=== PATIENT | male | born 1990 | race Caucasian/White ===

== ENCOUNTER 2019-12-16 19:36 | Emergency (ER) | payer MEDICAID ==
[~2019-12-16] VITALS: Ht 177.8 cm; Wt 90.0 kg
[2019-12-16 19:38] VITALS: BP 138/73
== END 2019-12-16 21:19 | disposition home or self-care (01) ==
LOC: ER 19:37
DX: S40.022A Contusion of left upper arm, initial encounter (principal); X58.XXXA Exposure to other specified factors, initial encounter; Y93.89 Activity, other specified; Y92.89 Other specified places as the place of occurrence of the external cause; Y99.8 Other external cause status
CPT/HCPCS: 99282

== ENCOUNTER 2021-03-17 21:25 | Emergency (ER) | payer MEDICAID ==
[~2021-03-17] VITALS: Ht 177.8 cm; Wt 104.5 kg
[2021-03-17] MEDS ORDERED: AMOX-422 PO (22:13)
[2021-03-17 23:05] VITALS: BP 146/84
== END 2021-03-17 23:08 | disposition home or self-care (01) ==
LOC: ER 21:26
DX: H66.92 Otitis media, unspecified, left ear (principal)
CPT/HCPCS: 99283

== ENCOUNTER 2021-08-03 23:07 | Emergency (ER) | payer MEDICAID ==
[~2021-08-03] VITALS: Ht 177.8 cm; Wt 102.3 kg
[2021-08-04 01:22] VITALS: BP 115/72
== END 2021-08-04 01:27 | disposition home or self-care (01) ==
LOC: ER 23:08
DX: M79.645 Pain in left finger(s) (principal); W21.07XA Struck by softball, initial encounter; Y93.89 Activity, other specified; Y92.89 Other specified places as the place of occurrence of the external cause; Y99.8 Other external cause status
CPT/HCPCS: 73140; 99283

== ENCOUNTER 2023-06-01 21:17 | Emergency (ER) | payer MEDICAID ==
[~2023-06-01] VITALS: Ht 177.8 cm; Wt 107.4 kg
[2023-06-01 22:33] LABS: BASOPHILS % (AUTO) 0.4 % (0-1); EOSINOPHILS # (AUTO) 0.2 X10'3 (0-0.9); EOSINOPHILS % (AUTO) 2.5 % (0-6); HEMATOCRIT 41.3 % (42.0-52.0); LYMPHOCYTES # (AUTO) 2.5 X10'3 (1.1-4.8); MEAN CORPUSCULAR HEMOGLOBIN 29.3 PG (27.0-31.0); MEAN CORPUSCULAR HGB CONC 33.9 g/dL (33.0-36.5); MEAN CORPUSCULAR VOLUME 86.6 FL (78-98); MEAN PLATELET VOLUME 8.4 FL (7.4-10.4); MONOCYTES # (AUTO) 0.7 X10'3 (0-0.9); MONOCYTES % (AUTO) 7.5 % (2-12); NEUTROPHILS # (AUTO) 5.4 X10'3 (1.8-7.7); NEUTROPHILS % (AUTO) 61.6 % (42-75); PLATELET COUNT 214 X10'3 (140-440); RED BLOOD COUNT 4.77 X10'6 (4.70-6.10); RED CELL DISTRIBUTION WIDTH 13.2 % (11.5-14.5); WHITE BLOOD COUNT 8.8 X10'3 (4.5-11.0)
[2023-06-01 22:42] LABS: ALANINE AMINOTRANSFERASE 33 U/L (12-78); ALBUMIN 4.1 G/DL (3.4-5.0); ALBUMIN/GLOBULIN RATIO 1.1 (1.1-1.5); ALKALINE PHOSPHATASE 75 IU/L (46-116); ANION GAP 12 (8-16); ASPARTATE AMINO TRANSFERASE 15 U/L (10-37); BILIRUBIN,TOTAL 0.4 MG/DL (0.1-1.0); BLOOD UREA NITROGEN 12 MG/DL (7-18); BUN/CREATININE RATIO 11.3 (10.0-20.0); CALCIUM 9.1 MG/DL (8.5-10.1); CHLORIDE 108 MMOL/L (99-107); CREATININE 1.06 MG/DL (0.60-1.10); GLUCOSE 95 MG/DL (70-104); LIPASE 33 U/L (16-77); POTASSIUM 3.8 MMOL/L (3.5-5.1); SODIUM 145 MMOL/L (135-145); TOTAL CARBON DIOXIDE 25.4 MMOL/L (24-32); TOTAL PROTEIN 7.7 G/DL (6.4-8.2); eCRCL 105 ML/MIN; eGFR 82 ML/MIN
[2023-06-01 23:00] LABS: BILIRUBIN,URINE NEGATIVE (Neg); CLARITY,URINE CLEAR (Clear); COLOR,URINE STRAW (Yellow); GLUCOSE, URINE NEGATIVE (Neg); KETONES,URINE NEGATIVE (Neg); LEUKOCYTE ESTERASE ,URINE NEGATIVE (Neg); NITRITES, URINE NEGATIVE (Neg); OCCULT BLOOD,URINE NEGATIVE (Neg); PROTEIN,URINE NEGATIVE (Neg); UROBILINOGEN,URINE 0.2 E.U/dL (0.2-1.0)
[2023-06-01 23:09] LABS: UA COLLECTION TYPE URINAL
[2023-06-01] MEDS: acetaminophen 325mg tablet PO ONE (23:18)
[2023-06-01] MEDS: morphine 4 MG/ML inj SYRINge IV ONE (23:18)
[2023-06-01] MEDS: ondansetron/PF 4mg/2ml inj IV ONE (23:18)
[2023-06-01] MEDS: normal saline 1000ml 1,000 ML IV ONE (23:20)
[2023-06-02] MEDS: normal saline 1000ml 1,000 ML IV ONE (00:23)
[2023-06-02 01:21] VITALS: BP 105/68; PULSE 68; RESP 14; TEMP 98.3; O2SAT 98
== END 2023-06-02 01:23 | disposition home or self-care (01) ==
LOC: ER 21:18
DX: S39.011A Strain of muscle, fascia and tendon of abdomen, initial encounter (principal); X58.XXXA Exposure to other specified factors, initial encounter; Y93.64 Activity, baseball; Y92.89 Other specified places as the place of occurrence of the external cause; Y99.8 Other external cause status
CPT/HCPCS: 36415; 74176; 80053; 81003; 83690; 85025; 96360; 96361; 99284; J7030

== ENCOUNTER 2024-08-13 21:43 | Emergency (ER) | payer MEDICAID ==
[~2024-08-13] VITALS: Ht 177.8 cm; Wt 102.3 kg
[2024-08-13 22:00] VITALS: BP 136/96; PULSE 89; RESP 18; TEMP 98.2; O2SAT 98
== END 2024-08-14 01:13 | disposition left against medical advice (07) ==
LOC: ER 21:44
DX: R51.9 Headache, unspecified (principal); R11.0 Nausea; Z53.21 Procedure and treatment not carried out due to patient leaving prior to being seen by health care provider